=== PATIENT | female | born 1940 | race Caucasian/White ===

== ENCOUNTER 2016-12-23 10:39 | Emergency (ER) | payer MEDICARE, OTHER ==
[~2016-12-23] VITALS: Ht 149.9 cm; Wt 96.0 kg
[~2016-12-23 10:39] MED LIST: ALBU8.5H2 INHALATION; ASCO100089 PO; ASPI-973 PO; CETI5TAB28 PO; CHOL5000 PO; EZET1TAB16 PO; FERR325T39 PO; FURO40TA4 PO; GLIM4TAB2 PO; INSU100C8 SUBQ; ISOS30TA4 PO; LEVO75TA36 PO; MULT-1018 PO; NITR0.4T SL; POTA10TA38 PO; SERT50TA PO; SODI325T PO
[2016-12-23 10:44] VITALS: BP 149/82; PULSE 60; RESP 12; O2SAT 99
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
[2016-12-23 10:58] VITALS: BP 143/52; PULSE 65; RESP 12; RESP 18; O2SAT 100
[2016-12-23] MEDS ORDERED: CINN500C14 PO (11:05)
[2016-12-23] MEDS ORDERED: CLOP75TA28 PO (11:05)
[2016-12-23] MEDS ORDERED: EZET1TAB7 PO (11:05)
[2016-12-23] MEDS ORDERED: MAGN100T5 PO (11:05)
[2016-12-23 11:20] LABS: BASOPHILS % (AUTO) 0.1 % (0-3); EOSINOPHILS % (AUTO) 0.4 % (0-5); MONOCYTES % (AUTO) 7.2 % (4-12); Mean Corpuscular Hemoglobin 31.9 pg (27.0-35.0); Mean Corpuscular Volume 93.9 fL (81-100); NEUTROPHILS % (AUTO) 73.6 % (40-74); Platelet Count 145 bil/L (150-400)
[2016-12-23 11:32] LABS: TROPONIN T 0.01 ug/L (0.0-0.011)
--- NOTE | 2016-12-23 11:41 | DRSVH ---
PROCEDURE: X-RAY CHEST ONE VIEW, PORTABLE ([id number]) INDICATIONS: CP TECHNIQUE: One view of the chest was acquired. COMPARISON: [facility], CR, XR CHEST 2VW, 05/27/2016, 9:48. FINDINGS: Surgical changes and devices: Sternotomy wires and CABG clips. Lungs and pleura: No pleural effusions or pneumothorax. Lungs are clear. Scattered scar/atelectasi s Mediastinum: Mediastinal contours appear normal. Heart size is normal. Bones and chest wall: No suspicious bony lesions. Overlying soft tissues appear unremarkable. IMPRESSION: No acute disease or interval change Dictated by: Kush East M.D. on 12/23/2016 at 11:36 Approved by: Kush East M.D. on 12/23/2016 at 11:39
[2016-12-23 11:43] LABS: Magnesium 2.2 mg/dL (1.6-2.6)
--- NOTE | 2016-12-23 12:19 | DRSVH ---
PROCEDURE: CT BRAIN WITHOUT CONTRAST ([id number]) INDICATIONS: JOLLY TECHNIQUE: Noncontrast 4.5 mm thick angled axial sections acquired from the foramen magnum to the vertex, with c oronal reformats. COMPARISON: None. FINDINGS: Image quality: Excellent. CSF spaces: Basal cisterns are patent. No extra-axial fluid collections. The ventricles are symmet tani in size and shape. Brain: No intracranial bleeds or masses. There is cerebral volume loss for age, with resultant vent ricular and sulcal prominence. There are periventricular and deep white matter chronic small vessel ischemic changes. There is intracranial internal carotid artery atherosclerosis. Skull and face: Calvarium and visualized facial bones appear intact, without suspicious lesions. Sinuses: Minimal bilateral maxillary sinus fluid IMPRESSION: No acute intracranial process. Dictated by: Kush East M.D. on 12/23/2016 at 12:15 Approved by: Kush East M.D. on 12/23/2016 at 12:17
[2016-12-23 12:54] LABS: APPEARANCE,URINE CLEAR (CLEAR,HAZY); COLOR,URINE STRAW (YELLOW)
[2016-12-23 12:55] LABS: OCCULT BLOOD,URINE NEGATIVE (NEGATIVE); PH,URINE 5.5 (5.0-8.0)
[2016-12-23 12:56] LABS: UROBILINOGEN,URINE NORMAL (NORMAL)
[2016-12-23 13:09] VITALS: BP 133/40; PULSE 60; RESP 17; O2SAT 98
[2016-12-23] MEDS ORDERED: levoFLOXacin 750 mg Tablet PO ONE ×2 (13:49→13:55)
[2016-12-23] MEDS ORDERED: LEVO750T9 PO (14:02)
[2016-12-23 14:06] VITALS: BP 144/77; PULSE 82; RESP 17; O2SAT 96
== END 2016-12-23 14:06 | disposition home or self-care (01) ==
LOC: SED 10:39
DX: M79.1 Myalgia (principal); N39.0 Urinary tract infection, site not specified; M54.2 Cervicalgia; R05 Cough; R07.89 Other chest pain; R51 Headache; R42 Dizziness and giddiness; I11.9 Hypertensive heart disease without heart failure; I25.10 Atherosclerotic heart disease of native coronary artery without angina pectoris; K21.9 Gastro-esophageal reflux disease without esophagitis; J45.909 Unspecified asthma, uncomplicated; E78.5 Hyperlipidemia, unspecified; G47.33 Obstructive sleep apnea (adult) (pediatric); Z95.0 Presence of cardiac pacemaker; Z95.1 Presence of aortocoronary bypass graft; Z98.890 Other specified postprocedural states; Z79.4 Long term (current) use of insulin; Z88.1 Allergy status to other antibiotic agents; Z88.5 Allergy status to narcotic agent